=== PATIENT | male | born 1995 | race Two or more races ===

== ENCOUNTER 2022-04-17 15:52 | Emergency (ER) | payer BC ==
[~2022-04-17] VITALS: Ht 167.6 cm; Wt 68.0 kg
[2022-04-17 16:14] VITALS: BP 119/53
--- NOTE | 2022-04-17 16:15 | NUR ---
BIBS C/O LEFT EAR MUFFLE SOUND AND RINGING SINCE 2PM TODAY. DENIES PAIN. WILL CONTINUE TO MONITOR THE PATIENT.
--- NOTE | 2022-04-17 16:53 | NUR ---
Patient discharged to home in stable condition. Written and verbal after care instructions given. Patient verbalizes understanding of instruction.
== END 2022-04-17 16:54 | disposition home or self-care (01) ==
LOC: EDBD 15:56 → ER 15:56
DX: H91.92 Unspecified hearing loss, left ear (principal); R51.9 Headache, unspecified